=== PATIENT | male | born 1965 | race Caucasian/White ===

== ENCOUNTER → 2018-12-29 10:29 | Outpatient (CLI) | payer BC, SELFPAY ==
[2018-12-29 11:46] LABS: Hemoglobin A1C 5.7 % (0.0-7.0)
[2018-12-29 12:35] LABS: Alanine Aminotransferase 29 U/L (12-78); Albumin Level 3.7 gm/dL (3.4-5.0); Albumin/Globulin Ratio 1.1 (1.1-1.8); Alkaline Phosphatase 95 U/L (46-116); Anion Gap 13.3 mEq/L (5-15); Aspartate Amino Transferase 17 U/L (15-37); Bilirubin,Total 0.5 mg/dL (0.2-1.0); Blood Urea Nitrogen 15 mg/dL (7-18); Calcium 8.6 mg/dL (8.5-10.1); Carbon Dioxide 25 mmol/L (21.0-32.0); Chloride 107 mmol/L (98-107); Chol/HDL Ratio 3.4 (1-3.5); Cholesterol 172 mg/dL (140-200); Creatinine,Serum 1.16 mg/dL (0.70-1.30); Estimated Glomerular Filt Rate 66 ml/min (>60); GFR (African American) 79 ML/MIN (>60); Globulin 3.3 gm/dl (1.3-3.2); Glucose 99 mg/dL (74-106); HDL Cholesterol 50 mg/dL (27-67); LDL Cholesterol 102 mg/dL (0-130); Potassium 4.3 mmoL/L (3.5-5.1); Prostate Specific Ag, Diagnost 0.28 ng/mL (0.0-4.0); Sodium 141 mmol/L (136-145); Thyroid Stimulating Hormone 1.41 uIU/ml (0.358-3.740); Triglycerides 101 mg/dL (30-200); VLDL Cholesterol 20 mg/dL (0-40)
== END ==
PROVIDERS: PCP Family Medicine; Visit Provider Family Medicine
DX: Z00.00 Encounter for general adult medical examination without abnormal findings (principal); Z13.220 Encounter for screening for lipoid disorders; Z12.5 Encounter for screening for malignant neoplasm of prostate; R73.01 Impaired fasting glucose
CPT/HCPCS: 36415; 80053; 80061; 83036; 84153; 84443

== ENCOUNTER → 2019-11-09 11:51 | Outpatient (CLI) | payer BC, SELFPAY ==
--- NOTE | 2019-11-09 | XR_ITS ---
PROCEDURE: XR CHEST 2V CLINICAL HISTORY: Shortness of air COMPARISON: No exams were available for comparison FINDINGS: The cardiomediastinal silhouette and pulmonary vascularity are within normal limits. There is eventration of the hemidiaphragm on the left anteriorly. The lungs are clear. There is a lucency of the proximal humerus on the right and could be due to a bone cyst or surgical defect. IMPRESSION: No acute findings. Dictated by: Kenan Vera MD 11/09/2019 12:16 Electronically signed by Kenan Vera MD in [place] 11/09/2019 12:16
[2019-11-09 13:03] LABS: Basophils # 0.1 K/mm3 (0-0.2); Basophils % 0.9 % (0.1-2.0); Eosinophils # 0.3 K/mm3 (0.0-0.4); Eosinophils % 5.1 % (0.1-12.0); Hematocrit 46.1 % (42.0-52.0); Hemoglobin 15.3 g/dL (14.1-18.0); Lymphocytes # 1.9 K/mm3 (0.7-4.5); Lymphocytes % 31.4 % (10-50); Mean Corpuscular HGB Conc 33.1 g/dL (31.8-35.4); Mean Corpuscular Hemoglobin 29.3 pg (27.0-31.2); Mean Corpuscular Volume 88.4 fl (80-94); Mean Platelet Volume 7.3 fl (7.4-10.4); Monocytes # 0.4 K/mm3 (0.1-1.0); Monocytes % 6.8 % (1.7-9.3); Neutrophils # 3.4 K/mm3 (1.8-7.8); Neutrophils % 55.7 % (37.0-80.0); Platelet Count 326 K/mm3 (142-424); Red Blood Count 5.21 M/mm3 (4.60-6.20); Red Cell Distribution Width 13.4 % (11.5-17.5)
[2019-11-09 14:14] LABS: Alanine Aminotransferase 29 U/L (12-78); Albumin Level 4.8 g/dl (3.5-5.0); Albumin/Globulin Ratio 1.5 (1.1-1.8); Alkaline Phosphatase 101 U/L (38-126); Anion Gap 11.6 mEq/L (5-15); Aspartate Amino Transferase 30 U/L (17-59); Bilirubin,Total 0.5 mg/dl (0.2-1.3); Blood Urea Nitrogen 17 mg/dl (9-20); Calcium 9.8 mg/dl (8.4-10.2); Carbon Dioxide 28 mmol/L (22.0-30.0); Chloride 103 mmol/L (98-107); Estimated Glomerular Filt Rate 69 ml/min (>60); GFR (African American) 84 ML/MIN (>60); Globulin 3.1 g/dL (1.3-3.2); Glucose 95 mg/dl (74-100); Potassium 4.6 mmoL/L (3.5-5.1); Sodium 138 mmol/L (136-145); Total Protein,Serum 7.9 g/dl (6.3-8.2)
== END ==
PROVIDERS: PCP Family Medicine; Visit Provider Family Medicine
DX: R06.02 Shortness of breath (principal); R06.2 Wheezing
CPT/HCPCS: 36415; 71046; 80053; 83880; 85025

== ENCOUNTER → 2019-11-15 09:47 | Outpatient (CLI) | payer BC, SELFPAY ==
[2019-11-15 10:53] VITALS: PULSE 63; PULSE 66
== END ==
PROVIDERS: PCP Family Medicine; Visit Provider Family Medicine
DX: R06.02 Shortness of breath (principal); R06.2 Wheezing
CPT/HCPCS: 94060; 94640

== ENCOUNTER → 2021-03-29 13:20 | Outpatient (CLI) | payer OTHER, SELFPAY ==
--- NOTE | 2021-03-29 13:30 | XR_ITS ---
PROCEDURE: XR KNEE LT 3V CLINICAL INDICATION: PAIN IN LT KNEE COMPARISON: No exams were available for comparison FINDINGS: No fracture or dislocation. No lytic or blastic change. There is normal mineralization. There are mild osteoarthritic changes of the medial compartment and patellofemoral joint. Other findings:None. IMPRESSION: Mild osteoarthritis Dictated by: Kenan Vera MD 03/29/2021 14:02 Kenan Vera MD in [place] 03/29/2021 14:02
[2021-03-29 15:45] LABS: Anion Gap 6.5 mEq/L (5-15); Blood Urea Nitrogen 11 mg/dl (9-20); Calcium 8.9 mg/dl (8.4-10.2); Carbon Dioxide 30 mmol/L (22.0-30.0); Chloride 109 mmol/L (98-107); Chol/HDL Ratio 3.6 (1-3.5); Cholesterol 192 mg/dl (140-200); Estimated Glomerular Filt Rate 87 ml/min (>60); GFR (African American) 106 ML/MIN (>60); Glucose 100 mg/dl (74-100); HDL Cholesterol 54 mg/dl (40-60); Potassium 4.5 mmoL/L (3.5-5.1); Sodium 141 mmol/L (136-145); Triglycerides 157 mg/dl (30-150); VLDL Cholesterol 31 mg/dL (0-40)
[2021-03-29 16:16] LABS: Prostate Specific Ag Screen 0.3 ng/ml (0.0-4.0)
== END ==
PROVIDERS: PCP Family Medicine; Visit Provider Family Medicine
DX: M25.562 Pain in left knee (principal); Z13.220 Encounter for screening for lipoid disorders; Z12.5 Encounter for screening for malignant neoplasm of prostate; Z13.1 Encounter for screening for diabetes mellitus
CPT/HCPCS: 36415; 73562; 80048; 80061; G0103

== ENCOUNTER → 2021-04-19 09:19 | Outpatient (CLI) | payer OTHER, SELFPAY ==
--- NOTE | 2021-04-19 09:26 | XR_ITS ---
PROCEDURE: XR KNEE LT 4V CLINICAL INDICATION: LT knee pain COMPARISON: CR XR KNEE LT 3V from 03/29/2021 FINDINGS: No fracture or dislocation. No lytic or blastic change. There is normal mineralization. There is slight decrease in the joint space medially on this weight-bearing views. Minimal spurring along the posterior patella. Possible small suprapatellar effusion. Other findings:None. IMPRESSION: Mild osteoarthritic changes overall not significantly changed with suspected small knee joint effusion Dictated by: Kenan Vera MD 04/19/2021 11:15 Kenan Vera MD in [place] 04/19/2021 11:15
== END ==
PROVIDERS: PCP Family Medicine; Visit Provider Orthopaedic Surgery
DX: M25.562 Pain in left knee (principal)
CPT/HCPCS: 73564

== ENCOUNTER 2021-04-19 10:40 | Outpatient (RCR) | payer BC, SELFPAY | END 2021-04-19 11:19 | disposition home or self-care (01) | LOC: PT 10:40 | PROVIDERS: Visit Provider Orthopaedic Surgery | DX: M25.562 Pain in left knee (principal); M17.12 Unilateral primary osteoarthritis, left knee | CPT/HCPCS: 97760 ==

== ENCOUNTER → 2022-07-25 09:46 | Outpatient (CLI) | payer BC, SELFPAY ==
[2022-07-25 10:00] LABS: Microscopic, Urine URINE MICROSCOPIC (MICROSCOPIC)
[2022-07-25 10:36] LABS: Basophils # 0.1 K/mm3 (0-0.2); Basophils % 1.1 % (0.1-2.0); Eosinophils # 0.3 K/mm3 (0.0-0.4); Eosinophils % 5.2 % (0.1-12.0); Hemoglobin 13.9 g/dL (14.1-18.0); Lymphocytes # 2.4 K/mm3 (0.7-4.5); Lymphocytes % 37.5 % (10-50); Mean Corpuscular HGB Conc 33.1 g/dL (31.8-35.4); Mean Corpuscular Hemoglobin 30.2 pg (27.0-31.2); Mean Corpuscular Volume 91.1 fl (80-94); Mean Platelet Volume 7.7 fl (7.4-10.4); Monocytes # 0.4 K/mm3 (0.1-1.0); Monocytes % 6.8 % (1.7-9.3); Neutrophils # 3.2 K/mm3 (1.8-7.8); Neutrophils % 49.5 % (37.0-80.0); Platelet Count 314 K/mm3 (142-424); Red Blood Count 4.61 M/mm3 (4.60-6.20); White Blood Count 6.5 K/mm3 (4.8-10.8)
[2022-07-25 10:49] LABS: Blood Urea Nitrogen 15 mg/dl (9-20); Calcium 8.5 mg/dl (8.4-10.2); Carbon Dioxide 24 mmol/L (22.0-30.0); Chloride 109 mmol/L (98-107); Estimated Glomerular Filt Rate 57 ml/min (>60); GFR (African American) 69 ML/MIN (>60); Glucose 100 mg/dl (74-100); Sodium 140 mmol/L (136-145)
[2022-07-25 11:16] LABS: Appearance,Urine CLEAR (Clear); Bilirubin,Urine Negative (Negative); Blood, Urine Negative (Negative); Color,Urine YELLOW (Yellow); Glucose,Urine (UA) Negative (Negative); Ketones,Urine Negative (Negative); Leukocyte Esterase,Urine Negative (Negative); Nitrate,Urine Negative (Negative); PH,Urine 5.5 (5.0-8.5); Protein,Urine Negative (Negative); Specific Gravity, Urine 1.025 (1.005-1.030); Urobilinogen,Urine 0.2 EU/dl (0.2)
[2022-07-25 12:03] LABS: Squamous Epithelial Cell,Urine Occasional #/hpf (0-5); WBC,Urine Occasional #/hpf (0-3)
== END ==
PROVIDERS: PCP Family Medicine; Visit Provider Surgery
DX: K40.90 Unilateral inguinal hernia, without obstruction or gangrene, not specified as recurrent (principal)
CPT/HCPCS: 36415; 80048; 81001; 85025

== ENCOUNTER 2022-08-07 06:03 | Day surgery (SDC) | payer BC, SELFPAY ==
[2022-08-05 11:58] VITALS: BMI 38.5
[2022-08-07] VITALS (13 sets, daily range): BP systolic 118–146; BP diastolic 66–96; PULSE 53–74; RESP 16–20; TEMP 36.1–43; O2SAT 93–99
--- NOTE | 2022-08-07 06:26 | ECG_ITS ---
APPROVED REPORT Exam: Resting ECG HR:63 bpm ECG Measurements Heart Rate 63 AXES DE 151 P 39 QRSd 107 QRS 56 QT 446 T 61 QTc 454 Conclusion SINUS RHYTHM LOW QRS VOLTAGE IN PRECORDIAL LEADS [QRS DEFLECTION < 1.0 mV IN CHEST LEADS] BORDERLINE ECG UNCONFIRMED REPORT Electronically signed by : Kai Tomas MD 08/07/2022 17:30:03
--- NOTE | 2022-08-07 08:06 | P.PN_ITS ---
[facility] Disclaimer: The information contained in this section may have been updated after the patient was seen, as this information can be updated by other users. Medical History (Updated 08/07/22 @ 06:19 by Jaye Farias RN) GERD (gastroesophageal reflux disease) Sleep apnea Surgical History H/O shoulder surgery History of colonoscopy Family History (Updated 08/07/22 @ 06:21 by Jaye Farias RN) Other Brain cancer Family history of myocardial infarction Social History (Updated 08/07/22 @ 06:21 by Jaye Farias RN) Smoking Status: Never smoker alcohol intake: current substance use type: denies use current occupational status: employed Travel in the last 8 weeks: Inside the [place] household members: spouse and family housing: house marital status: education level: college service: No caffeine: Yes special robbin needs: No agree to transfusion: No do you feel safe at home: Yes victim of physical abuse: No victim of emotional abuse: No victim of sexual abuse: No would you like helpful sources: No [facility] Anesthesia Checklist Patient Identification Patient Identification: Arm Band and Family Structural Data Admitted From: Home Planned Operative Procedure/s: Right Inguinal Hernia Repair Open Consent for Planned Operative Procedure(s) Verified: Yes Verified Documents: Surgical Consent and History and Physical NPO Status Verified Time NPO: 00:00 Additional verifications Patient : No Anesthesia Reactions: No Hx Blood Transfusions: No Blood Transfusion Reaction: No Cephalosporin Allergy: No Previous Colonoscopy: Yes Airway Assessment C-Spine Mobility Assessed: Yes TMJ Mobility Assessed: Yes Dentition: Good Dentition Neurological Assessment Level of Consciousness: Awake, Alert, Appropriate and Follows Commands Hx Seizures: No Numbness or tingling in extremities: No Anesthesia Plan Anesthesia Risk discussed: Yes ASA Class: II Anesthesia Type: General
--- NOTE | 2022-08-07 08:52 | P.OP_ITS ---
Date of procedure: 08/07/22 Pre-op Diagnosis:: Right inguinal hernia Post-op Diagnosis:: Same Procedure performed:: Open right inguinal hernia repair Surgeon:: Ton Batista MD Anesthesia: GETMary Beth Estimated blood loss (mL): 15 Operative findings:: Large complex direct defect Operative note:: After informed consent was obtained the patient was taken to the operating room and placed in the supine position. General anesthesia was induced and his lower abdomen and groin/scrotum were prepped and draped in a sterile fashion. After infiltration local anesthetic an oblique incision was made in the right groin. Dissection was taken through Zahra's fascia to the level of the external aponeurosis. The external aponeurosis was sharply opened to the level of the external ring. The contents of the canal were carefully elevated. A large comp jana direct defect was encountered. The cord structures were carefully elevated as a combination of sharp dissection, blunt dissection, and electrocautery was utilized to dissect the surrounding tissue/cremasteric fibers.. An extra-large PerFix plug was secured in position through the direct defect with interrupted 2-0 Ethibond. The PerFix overlay was then secured to the shelving edge inferiorly and fascial margin superiorly with interrupted Ethibond. The external aponeurosis was then reapproximated with running Vicryl suture. Zahra's fascia was closed in the same manner. Skin was then reapproximated with running 3-0 Monocryl strata fix. Dressings were applied and the patient was transferred to recovery in stable condition. Condition: stable Disposition: PACU Specimens:: none Complications:: No immediate
--- NOTE | 2022-08-07 11:01 | P.PN_ITS ---
[facility] Disclaimer: The information contained in this section may have been updated after the patient was seen, as this information can be updated by other users. Medical History (Updated 08/07/22 @ 06:19 by Jaye Farias RN) GERD (gastroesophageal reflux disease) Sleep apnea Surgical History H/O shoulder surgery History of colonoscopy Family History (Updated 08/07/22 @ 06:21 by Jaye Farias RN) Other Brain cancer Family history of myocardial infarction Social History (Updated 08/07/22 @ 06:21 by Jaye Farias RN) Smoking Status: Never smoker alcohol intake: current substance use type: denies use current occupational status: employed Travel in the last 8 weeks: Inside the [place] household members: spouse and family housing: house marital status: education level: college service: No caffeine: Yes special robbin needs: No agree to transfusion: No do you feel safe at home: Yes victim of physical abuse: No victim of emotional abuse: No victim of sexual abuse: No would you like helpful sources: No [facility] Anesthesia Checklist Patient Identification Patient Identification: Arm Band and Family Structural Data Admitted From: Home Planned Operative Procedure/s: Open Right Inguinba Hernia Repair Consent for Planned Operative Procedure(s) Verified: Yes NPO Status Verified Time NPO: 00:00 Additional verifications Patient : No Anesthesia Reactions: No Hx Blood Transfusions: No Blood Transfusion Reaction: No Cephalosporin Allergy: No Previous Colonoscopy: No Airway Assessment C-Spine Mobility Assessed: Yes TMJ Mobility Assessed: Yes Dentition: Good Dentition Neurological Assessment Level of Consciousness: Awake, Alert, Appropriate and Follows Commands Hx Seizures: No Numbness or tingling in extremities: No Anesthesia Plan Anesthesia Risk discussed: Yes ASA Class: II Anesthesia Type: General
--- NOTE | 2022-08-07 11:03 | P.PNANES_ITS ---
[facility] Anesthesia Record Part I Anesthesia Record I Intake, IV Amount: 1,600 Estimated blood loss (mL): 2 Urine output (mL): 100 Blood Products used (#): none Blood Pressure: 140/96 SaO2: 96 Pulse Rate: 74 Respiratory Rate: 18 Temperature: 97.9 F Patient is:: Drowsy and Stable Stable to PACU at:: 09:00
[2022-08-07 15:02] LABS: Microscopic,Cath URINE MICROSCOPIC (MICROSCOPIC)
[2022-08-07 15:09] LABS: Appearance,Urine/Cath CLEAR (Clear); Bilirubin,Cath Negative (Negative); Blood, Urine/Cath Negative (Negative); Color,Urine/Cath YELLOW (Yellow); Glucose,Urine/Cath (UA) Negative (Negative); Ketones,Urine/Cath Negative (Negative); Leukocyte Esterase,Cath Negative (Negative); Nitrate,Cath Negative (Negative); Protein,Urine/Cath Negative (Negative); Specific Gravity, Urine/Cath 1.025 (1.005-1.030); Urobilinogen,Cath 0.2 EU/dl (0.2)
[2022-08-07 15:32] LABS: Squamous Epithelial Ur./Cath Occasional #/hpf (0-5); WBC,Urine/Cath Occasional #/hpf (0-3)
--- NOTE | 2022-08-11 07:36 | EXP.ANES.II ---
[facility] Anesthesia Record Part II Anesthesia Record Part II Discharge Time: 09:30 Destination: Surgical Day Care (OP Surgery) PACU nurse assessment reviewed?: Yes Patient Condition:: Good Anesthesia Complications:: None Swallowing reflex intact?: Yes Cyanosis?: No Blood Pressure: 142/82 Pulse Rate: 57 Temperature: 97.6 F Mental Status: Alert & Oriented Pain level:: 0 Nausea and/or vomitting:: None Intake, IV Amount: 0
[2022-08-11 07:38] VITALS: BP 142/82; PULSE 57; TEMP 36.4
== END 2022-08-07 10:50 | disposition home or self-care (01) ==
PROVIDERS: PCP Family Medicine; Visit Provider Surgery
PROC: (CPT 49505; principal; 2022-08-07 07:30)
DX: K40.90 Unilateral inguinal hernia, without obstruction or gangrene, not specified as recurrent (principal)
CPT/HCPCS: 49505; 81001; 93005; 96374; J2405

== ENCOUNTER → 2022-08-26 14:00 | Outpatient (CLI) | payer BC, SELFPAY ==
--- NOTE | 2022-08-26 14:03 | XR_ITS ---
FINAL REPORT CLINICAL HISTORY: knee pain FINDINGS: AP, lateral and oblique views of the right knee were obtained. There is no prior exam for comparison. There is no acute osseous abnormality of the right knee. There is mild degenerative joint disease, most pronounced in the medial compartment. The soft tissues are normal. There is no joint effusion. IMPRESSION: Mild degenerative joint disease. Reviewed, Interpreted and Dictated by Tabatha Beavers MD Transcribed by Emmie Rodrigez Authenticated and [facility]
--- NOTE | 2022-08-26 14:03 | XR_ITS ---
FINAL REPORT CLINICAL HISTORY: hip pain FINDINGS: AP and frog leg views of the left hip were obtained. There is no prior exam for comparison. There is no acute fracture or dislocation. Joint space is preserved. Soft tissues are within normal limits. IMPRESSION: No acute osseous abnormality of the left hip. If pain persists, MR is recommended. Reviewed, Interpreted and Dictated by Tabatha Beavers MD Transcribed by Emmie Rodrigez Authenticated and [facility]
--- NOTE | 2022-08-26 14:03 | XR_ITS ---
FINAL REPORT CLINICAL HISTORY: hip pain FINDINGS: AP and frog leg views of the right hip were obtained. There is no prior exam for comparison. There is no acute fracture or dislocation. Joint space is preserved. Soft tissues are within normal limits. IMPRESSION: No acute osseous abnormality of the right hip. If pain persists, MR is recommended. Reviewed, Interpreted and Dictated by Tabatha Beavers MD Transcribed by Emmie Rodrigez Authenticated and [facility]
--- NOTE | 2022-08-26 14:03 | XR_ITS ---
FINAL REPORT CLINICAL HISTORY: knee pain FINDINGS: AP, lateral and oblique views of the left knee were obtained. There is no prior exam for comparison. There is no acute osseous abnormality of the left knee. There is mild degenerative joint disease, most pronounced in the medial compartment. The soft tissues are normal. There is no joint effusion. IMPRESSION: Mild degenerative joint disease. Reviewed, Interpreted and Dictated by Tabatha Beavers MD Transcribed by Emmie Rodrigez Authenticated and [facility]
== END ==
PROVIDERS: PCP Family Medicine; Visit Provider Orthopaedic Surgery
DX: M25.562 Pain in left knee (principal); M25.561 Pain in right knee; M25.552 Pain in left hip; M25.551 Pain in right hip
CPT/HCPCS: 73502; 73562

== ENCOUNTER 2022-11-25 14:30 | Outpatient (RCR) | payer BC, SELFPAY | END 2022-11-25 14:35 | disposition home or self-care (01) | LOC: PT 14:30 | PROVIDERS: PCP Family Medicine; Visit Provider Physical Medicine & Rehabilitation | DX: M25.551 Pain in right hip (principal); M25.552 Pain in left hip; M16.0 Bilateral primary osteoarthritis of hip; M17.0 Bilateral primary osteoarthritis of knee | CPT/HCPCS: 97010; 97014; 97110; 97163; 97164; 97530; G0283 ==

== ENCOUNTER 2023-02-18 14:00 | Outpatient (RCR) | payer BC, SELFPAY | END 2023-02-18 14:05 | disposition home or self-care (01) | LOC: PT 14:00 | PROVIDERS: PCP Family Medicine; Visit Provider Physical Medicine & Rehabilitation | DX: M17.0 Bilateral primary osteoarthritis of knee (principal) | CPT/HCPCS: 97113; 97163; 97164; 97530 ==

== ENCOUNTER 2023-08-19 13:00 | Outpatient (RCR) | payer BC, SELFPAY | END 2023-08-19 14:00 | disposition home or self-care (01) | LOC: PT 13:00 | PROVIDERS: PCP Family Medicine; Visit Provider Orthopaedic Surgery | DX: M17.12 Unilateral primary osteoarthritis, left knee (principal); Z96.652 Presence of left artificial knee joint | CPT/HCPCS: 20561; 97010; 97014; 97016; 97110; 97140; 97163; 97164; 97530; G0283 ==

== ENCOUNTER 2024-02-19 10:00 | Outpatient (RCR) | payer BC, SELFPAY | END 2024-02-19 10:05 | disposition home or self-care (01) | LOC: PT 10:00 | PROVIDERS: Visit Provider Orthopaedic Surgery | DX: M17.11 Unilateral primary osteoarthritis, right knee (principal); M25.561 Pain in right knee; Z96.651 Presence of right artificial knee joint | CPT/HCPCS: 97014; 97016; 97110; 97140; 97163; 97164; 97530; G0283 ==

== ENCOUNTER 2024-06-09 15:20 | Outpatient (CLI) | payer BC, SELFPAY ==
--- NOTE | 2024-06-09 15:20 | CT_ITS ---
FINAL REPORT TECHNIQUE: Thin section axial CT images of the facial bones and sinuses were obtained without contrast. Coronal reformatted images were also obtained.This study was performed with techniques to keep radiation doses as low as reasonably achievable, (ALARA). Individualized dose reduction techniques using automated exposure control or adjustment of mA and/or kV according to the patient''''s size were employed. CLINICAL HISTORY: tooth pain and sinus congestion FINDINGS: There is moderate lobular mucosal thickening throughout the sinuses. Soft tissue obscures the maxillary sinus ostia and infundibulum. No fluid levels are identified. The ostiomeatal units have an unremarkable appearance. The nasal septum is in the midline. No fracture or acute bony abnormality is identified. IMPRESSION: Moderate lobular mucosal thickening throughout the sinuses. Soft tissue obscuring the maxillary sinus ostia and infundibulum. No air-fluid levels identified. Reviewed, Interpreted and Dictated by Eyad Blake III, MD Transcribed by Lu Ang Authenticated and . [facility]
== END 2024-06-09 23:59 | disposition home or self-care (01) ==
LOC: RAD 15:20
PROVIDERS: PCP Family Medicine; Visit Provider Nurse Practitioner
DX: K08.89 Other specified disorders of teeth and supporting structures (principal); R09.81 Nasal congestion
CPT/HCPCS: 70486

== ENCOUNTER 2025-02-08 12:59 | Outpatient (CLI) | payer BC, SELFPAY ==
[2025-02-08 08:18] VITALS: BMI 39.3
--- OUTSIDE RECORDS SUMMARY | 2025-02-08 13:04 | XMS_ITS | Encounter Summary ---
Author Organization Healthcare Address [address] [place] [address] Care Team Providers Care Software Test Manager Name Role Phone Allen Khalil MD Primary Care Provider [phone] Fay Singleton DMD Unavailable [phone] Matt Frank Unavailable Unavailable Encounter Details Date Type Department Care Team (Late st Contact Info) Description 11/10/2024 Telephone [facility] [address] [place] [address] None, None [address] [place] [address] Social History Tobacco Use Types Packs/Day Years Used Date Smoking Tobacco: Former Cigarettes 0.5 15 0 06/29/1986 - 06/29/2001 Passive Smoke Exposure: Never Smokeless Tobacco: Never Alcohol Use Standard Drinks/Week Comments Yes 2 (1 standard drink = 0.6 oz pur e alcohol) AUDIT-C Answer Date Recorded Q1: How often do you have a drink containing alc ohol? 2-4 times a month 04/21/2023 Q2: How many drinks containi ng alcohol do you have on a typical day when you are drinking? 3 or 4 04/21/2023 Q3: How often do you have si x or more drinks on one occasion? Never 04/21/2023 Overall Financial Resource Strain (CARDIA) Answe r Date Recorded How hard is it for you to pa y for the very basics like food, housing, medical care, and heating? Not very hard 04/21/2023 PHQ-2 Answer Date Recorded Patient Health Questionnaire-2 Score 0 09/21/2024 PRAPARE - Transportation Answer Date Re corded In the past 12 months, has l ack of transportation kept you from medical appointments or from getting medications? No 03/30 In the past 12 months, has l ack of transportation kept you from meetings, work, or from getting things needed for daily living? No 04/21/2023 PHQ-9 Answer Date Recorded Patient Health Questionnaire-9 Score 0 09/21/2024 CAGE ASSESSMENT Answer Date Recorded Cage unable to access Not on file 05/27/2023 Cage max number of drinks Not on file 2022 Cage Beverages a week Not on file 05/27/2023 Have you ever felt you should CUT down on your d rinking? 0 05/27/2023 Have you been ANNOYED by people criticizing your drinking? 0 05/27/2023 Have you felt GUILTY about your drinking? 0 05/27/2023 Have you had a drink first t macie in the morning (EYE-LOSS PREVENTION/SAFETY DISTRICT MANAGER) to steady your nerves or to get rid of a hangover? 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 He has an appt in [facility] tomorrow, left multiple messages for Endo to this affect. Teams messaged [facility] to return pt's call. documented in this encounter Plan of Treatment Upcoming Encounters Date Type Department Care Team (Late st Contact Info) Description 02/09/2025 1:30 PM EDT Office Visit [facility] [address] [facility] [address] [place] [phone] 05/11/2025 2:00 PM EST Office Visit [facility] [address] [place] [phone] Matt Frank 05/30/2025 8:30 AM EST Office Visit Medical [facility] [address], [address] [place] [address] Rafael Hughes MD [address] [place] [address] 09/27/2025 1:00 PM EDT Office Visit [facility] [address] [facility], [address] [place] [address] Anne Lau MD [address] [place] [address] documented as of this encounter Visit Diagnoses Not on filedocumented in this encounter Additional Health Concerns Assessment Noted Time PHQ-9 Depression Total Score: 0 09/22/19 25 12:54 PM EDT A fall risk assessment has been complete d for the patient 09/21/2024 12:54 PM EDT A Body Mass Index follow-up plan has been documented for the patient 11/04/2024 12:35 PM EDT documented as of this encounter Care Teams Software Test Manager Relationship Specialty Start Date End Date Allen Khalil MD [address] [facility] [address] [place] [address] PCP - General 11/09/20 Fay Singleton DMD [address] [facility] [address] [place] [address] Dentist 05/04/24 Matt Frank Dental Student Dental Winch Derrick Operator 05/04/24 documented as of this encounter
--- OUTSIDE RECORDS SUMMARY | 2025-02-08 13:04 | XMS_ITS | Encounter Summary ---
Author Organization [facility] Address [address] [place] [address] Care Team Providers Care Stem Sizer Name Role Phone Allen Khalil MD Primary Care Provider + [phone] Sarah Ball DMD Unavailable [phone] Alphonso Boles I Unavailable Unavailable Kathleen Davisa A Unavailable Unava ilable Naomi Carter Unavailable Unavailable Fay Singleton DMD Unavailable [phone] Matt Frank Unavailable Unavailable Encounter Details Date Type Department Care Team (Late st Contact Info) Description 08/23/2019 Abstract [facility] [address] [place] [address] Dental, Provider, DDS [address] [place], [place] [id number] Social History Tobacco Use Types Packs/Day Years Used Date Smoking Tobacco: Never Assessed Sex and Gender Information Value Date Recorded Sex Assigned at Male 02/26/2024 5:13 PM EDT Legal Sex Male 8:53 PM EDT Gender Identity Male 02/26/2024 5:13 PM EDT Sexual Orientation Not on file documented as of this encounter Plan of Treatment Upcoming Encounters Date Type Department Care Team (Late Contact Info) Description 02/09/2025 1:30 PM EDT Office Visit [facility] [address] [address] 05/11/2025 2:00 PM EST Office Visit [facility] [address] [place] [address] Matt Frank 05/30/2025 8:30 AM EST Office Visit [facility] [address] [facility], [address] [place] [address] Rafael Hughes MD [address] [place] [address] 09/27/2025 1:00 PM EDT Office Visit [facility] [address] [facility], [address] [place] [address] Anne Lau MD [address] [facility] [address] [place] [address] documented as of this encounter Visit Diagnoses Not on filedocumented in this encounter Care Teams Stem Sizer Relationship Specialty Start Date End Date Allen Khalil MD [address] [facility] [address] [place] [address] PCP - General 11/09/20 Sarah Ball DMD [address] [phone] Dentist Dental Mortgage Processor 12/07/20 Alphonso Boles I [facility] Dental Student Dental Mortgage Processor 12/07/20 12/31/21 Adriana Davis [facility] Dental Student Dental Mortgage Processor 10/18/21 11/06/23 Naomi Carter Dental Student Dental Mortgage Processor 10/15/23 05/03/24 Fay Singleton DMD [address] [phone] Dentist 05/04/24 Matt Frank Dental Student Dental Mortgage Processor 05/04/24 documented as of this encounter
--- OUTSIDE RECORDS SUMMARY | 2025-02-08 13:04 | XMS_ITS | Encounter Summary ---
Author Organization [facility] Address [address] [place] [address] Care Team Providers Care Power System Dispatcher Name Role Phone Allen Khalil MD Primary Care Provider + [phone] Sarah Ball DMD Unavailable [phone] Alphonso Boles I Unavailable Unavailable Kathleen Davisa A Unavailable Unava ilable Naomi Carter Unavailable Unavailable Fya Singleton DMD Unavailable [phone] Matt Frank Unavailable Unavailable Encounter Details Date Type Department Care Team (Late st Contact Info) Description 08/23/2019 [facility] [address] [place] [address] Dental, Provider, DDS [address] [place], [place] [id number] Social History Tobacco Use Types Packs/Day Years [...] 02/09/2025 1:30 PM EDT Office Visit [facility] [address] [id number] 05/11/2025 2:00 PM EST Office Visit [facility] [address] [place] [address] Matt Frank 05/30/2025 8:30 AM EST Office Visit Medical Office [facility] [address] [facility], [address] [place] [address] Rafael Hughes MD [address] [place] [address] 09/27/2025 1:00 PM EDT Office Visit [facility] [address] [facility], [address] [place] [address] Anne Lau MD [address] [facility] [address] [place] [address] documented as of this encounter Visit Diagnoses Not on filedocumented in this encounter Care Teams Power System Dispatcher Relationship Specialty Start Date End Date Allen Khalil MD [address] [facility] [address] [place] [address] PCP - General 11/09/20 Sarah Ball DMD [address] [phone] Dentist Dental Hearing Impaired Itinerant Teacher 12/07/20 Alphonso Boles I [facility] Dental Student Dental Hearing Impaired Itinerant Teacher 12/07/20 12/31/21 Adriana Davis [facility] Dental Student Dental Hearing Impaired Itinerant Teacher 10/18/21 11/06/23 Naomi Carter Dental Student Dental Hearing Impaired Itinerant Teacher 10/15/23 05/03/24 Fay Singleton DMD [address] [phone] Dentist 05/04/24 Matt Frank Dental Student Dental Hearing Impaired Itinerant Teacher 05/04/24 documented as of this encounter
--- OUTSIDE RECORDS SUMMARY | 2025-02-08 13:04 | XMS_ITS | Encounter Summary ---
Author Organization [facility] Address [address] 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 Not on file Not on file documented as of this encounter Plan of Treatment Upcoming Encounters Date Type Department Care Team (Late st Contact Info) Description 02/09/2025 1:30 PM EDT Office Visit [facility] [address] [facility] [address] [place] [phone] 05/11/2025 2:00 PM EST Office Visit [facility] [address] [place] [phone] Matt Frank 05/30/2025 8:30 AM EST Office Visit Medical Office [facility] [address] [facility], [address] [place] [address] Rafael Hughes MD [address] [facility] [address] [place] [address] 09/27/2025 1:00 PM EDT Office Visit [facility] [address] [facility] [place] [address] Anne Lau MD [address] [facility] [address] [place] [address] documented as of this encounter Goals Goal Patient Goal Type Associated Problems Recent Progress Patient-Stated? Author Autogenerat ed Goal Care Plan Autogenerated Problem No Morelia Delarosa documented as of this encounter Visit Diagnoses Not on filedocumented in this encounter Additional Health Concerns Active Problems Noted Date Diagnosed Date Autogenerated Problem 11/13/2024 Assessment Noted Time PHQ-9 Depression Total Score: 0 09/22/19 25 12:54 PM EDT A fall risk assessment has been complete d for the patient 11/29/2024 7:42 AM EDT A Body Mass Index follow-up plan has been documented for the patient 11/29/2024 11:16 AM EDT documented as of this encounter Care Teams Nursing Information Systems Coordinator Relationship Specialty Start Date End Date Allen Khalil MD [address] [facility] [address] [place] [address] PCP - General 11/09/20 Fay Singleton DMD [address] [place] [phone] Dentist 05/04/24 Matt Frank Dental Student Dental Railroad Car Cleaning Supervisor 05/04/24 documented as of this encounter
--- OUTSIDE RECORDS SUMMARY | 2025-02-08 13:04 | XMS_ITS | Encounter Summary ---
Author Organization [facility] Address [address] [place] [address] Care Team Providers Care Security Coordinator Name Role Phone Allen Khalil MD Primary Care Provider + [phone] Sarah Ball DMD Unavailable [phone] Alphonso Boles I Unavailable Unavailable Kathleen Davisa A Unavailable Unava ilable Naomi Carter Unavailable Unavailable Fay Singleton DMD Unavailable [phone] Matt Frank Unavailable Unavailable Encounter Details Date Type Department Care Team (Late st Contact Info) Description 08/23/2019 [facility] [address] [place] [address] Dental, Provider, DDS [address] [place], [place] [id number] Social History Tobacco Use Types Packs/Day Years [...] 02/09/2025 1:30 PM EDT Office Visit [facility] [address] [phone] 05/11/2025 2:00 PM EST Office Visit [facility] [address] [place] [address] Matt Frank 05/30/2025 8:30 AM EST Office Visit Medical Office Building [facility] [address] [facility], [address] [place] [address] Rafael Hughse MD [address] [place] [address] 09/27/2025 1:00 PM EDT Office Visit [facility] [address] [facility], [address] [place] [address] Anne Lau MD [address] [facility] [address] [place] [address] documented as of this encounter Visit Diagnoses Not on filedocumented in this encounter Care Teams Security Coordinator Relationship Specialty Start Date End Date Allen Khalil MD [address] [facility] [address] [place] [address] PCP - General 11/09/20 Sarah Ball DMD [address] [phone] Dentist Dental General Car Yard Supervisor 12/07/20 Alphonso Boles I [facility] Dental Student Dental General Car Yard Supervisor 12/07/20 12/31/21 Adriana Davis [facility] Dental Student Dental General Car Yard Supervisor 10/18/21 11/06/23 Naomi Carter Dental Student Dental General Car Yard Supervisor 10/15/23 05/03/24 Fay Singleton DMD [address] [phone] Dentist 05/04/24 Matt Frank Dental Student Dental General Car Yard Supervisor 05/04/24 documented as of this encounter
--- OUTSIDE RECORDS SUMMARY | 2025-02-08 13:04 | XMS_ITS | Clinical Summary ---
Author Organization [facility] Address [address] [place] [address] Care Team Providers Care Public Works Commissioner Name Role Phone Allen Khalil MD Primary Care Provider [phone] Fay Singleton DMD Unavailable [phone] Matt Frank Unavailable Unavailable Allergies No known active allergies Medications albuterol 108 (90 Base) MCG/ACT inhaler Inhale 2 puffs every 6 (six) hours if needed (Cough). 18 g 1 3 Active gabapentin (Neurontin) 100 MG capsule Take 1 capsule (100 mg) by mouth 3 (three) times a day. If this medication makes you drowsy you may take it only at bedtime 30 capsule 4 Active Additional Information Patient not taking.Reported on 11/29/2024 acetaminophen (Tylenol Extra Strength) 500 MG tablet Take 2 tablets (1,000 mg) by mouth every 8 (eight) hours. 100 tablet 4 Active traMADol (Ultram) 50 MG tablet Take 1 tablet (50 mg) by mouth every 4 (four) hours if needed for moderate pain. Take 1 or 2 tablets every 4-6 hours as needed for pain 60 tablet 4 Active Additional Information Patient not taking.Reported on 11/29/2024 oxyCODONE (Roxicodone) 5 MG immediate release tablet Take 1 tablet (5 mg) by mouth every 6 (six) hours if needed for severe pain. 50 tablet 4 Active Additional Information Patient not taking.Reported on 11/29/2024 tadalafil (Adcirca) 20 MG tablet 4 Active fluticasone (Flonase) 50 MCG/ACT nasal spray Administer 1 spray into each nostril daily. Shake gently. Before first use, prime pump. After use, clean tip and replace cap. Active fluticasone-paco meterol (Wixela Inhub) 250-50 MCG/ACT diskus inhaler Inhale 1 puff in the morning and 1 puff before bedtime. Rinse mouth with water after use to reduce aftertaste and incidence of candidiasis. Do not swallow. 60 each 11 5 Active omeprazole (PriLOSEC) [address] capsule Take 1 capsule by mouth in the morning and 1 capsule before bedtime. Do not crush or chew. 60 capsule 11 5 Active chlorhexidine (Peridex) 0.12 % solution Use 15 mL in the mouth or throat 2 times a day. 473 mL 5 Active HYDROcodone-va taminophen ([place]) 5-325 MG tablet Take 1 tablet by mouth every 6 hours as needed for severe pain. 6 tablet 5 Active ibuprofen 600 MG tablet Take 1 tablet by mouth every 6 hours as needed for mild pain. 40 tablet 5 Active Active Problems Problem Noted Date Diagnosed Date Primary localized osteoarthritis of right knee 0 10/27/2023 Primary osteoarthritis of left knee 05/27/2023 Primary osteoarthritis of one knee, left 023 Obesity (BMI 35.0-39.9 without comorbidity) 08/29 Gastroesophageal reflux disease without esophagi tis 02/27/2022 Other conjunctivitis 02/27/2022 Moderate persistent asthma, uncomplicated 2021 Allergic rhinitis due to animal (cat) (dog) hair and dander 05/08/2021 Acute seasonal allergic rhinitis due to pollen 1 07/08/2020 Abscessed tooth 05/08/2021 Wheezing 05/08/2021 GERD (gastroesophageal reflux disease) 1 Allergic rhinitis due to cat hair 05/10/2020 Obstructive sleep apnea, adult 05/10/2020 Allergic rhinitis due to pollen 05/10/2020 Lung nodule 03/13/2020 Sleep apnea 02/07/2020 Arthritis of knee, right 12/29/2018 Encounters Date Type Department Care Team Description 02/02/2025 Travel 11/29/2024 7:50 AM EDT Office Visit Medical Office Building [facility] [address], [address] [place] [address] Rafael Hughes MD Chronic pain of right knee (Primary Dx) 11/29/2024 7:25 AM EDT - 11/29/2024 11:59 PM EDT Hospital Encounter Medical Office Building Radiology [address] [place] [address] Chronic pain of right knee Discharge Disposition: Home or Self Care 11/29/2024 Travel 11/25/2024 1:30 PM EDT [facility] Visit [facility] [address] [phone] Riky Noble A, DDS Failing root canal (Primary Dx) 11/25/2024 Travel 11/22/2024 Travel 11/18/2024 Travel 11/11/2024 8:15 AM EDT [facility] [address] [phone] Riky Noble, DDS Failing root canal; Encounter for dental examination 11/11/2024 Travel 11/10/2024 Telephone [facility] [address] [place] [phone] Sy Joseph 11/10/2024 Telephone [facility] [address] [place] [phone] None, None 11/10/2024 Telephone [facility] [address] [phone] Jacqueline Gómez 11/10/2024 Travel from Last 3 Months Immunizations Immunization Administration Dates Next Due [facility] COVID-19 Vaccine (Purple Cap) 12 + 03/06/2021,02/08/2021 Tdap 10/05/2014 Family History Medical History Relation Name Comments Cancer Brother Nonya Cardiac disorder Father Prostate cancer Father Anesthesia problems Neg Hx Malig Hyperthermia Neg Hx Relation Name Status Comments Brother Nonya Father Social History Tobacco Use Types Packs/Day Years [...] drink first t macie in the morning (EYE-FOOD CHEMIST) to steady your nerves or to get [...] 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 Not on file Not on file Last Filed Vital Signs Vital Sign Reading Time Taken Comments Blood Pressure 107/68 11/29/2024 7:42 AM EDT Pulse 70 11/29/2024 7:42 AM EDT Temperature 36.6 C (97.9 F) 11/25/2024 1:29 PM EDT Respiratory Rate 18 09/21/2024 12:53 PM EDT Oxygen Saturation 96% 11/29/2024 7:42 AM EDT Inhaled Oxygen Concentration - - Weight 130 kg (286 lb 13.1 oz) 11/29/2024 7:42 A M EDT Height 182.9 cm (6') 11/29/2024 7:42 AM EDT Body Mass Index 38.9 11/29/2024 7:42 AM EDT Plan of Treatment Upcoming Encounters Date Type Department Care Team (Late st Contact Info) Description 02/09/2025 1:30 PM EDT Office Visit [facility] [address] [facility] [address] [place] [phone] 05/11/2025 2:00 PM EST Office Visit [facility] [address] [place] [phone] Matt Frank 05/30/2025 8:30 AM EST Office Visit Medical Office Building [facility] [address], [address] [place] [address] Rafael Hughes MD [address] [place] [address] 09/27/2025 1:00 PM EDT Office Visit [facility] [address], [address] [place] [address] Anne Lau MD [address] [place] [address] Health Maintenance Due Date Last Done Comments [facility]-HIV Screening 1964 [facility]-Hepatitis C Screening 1964 [facility]-Infant/Child/Adol SDOH Screenings 1964 [facility]- SDOH Screenings 1982 [facility]-Adult SDOH Screenings 1982 [facility]-Pneumococcal Vaccine: 50+ Years (1 of 2 - PCV) 1983 CT Colonography 2009 Colonoscopy 2009 FIT-DNA 2009 FIT 2009 FOBT 2009 Sigmoidoscopy 2009 [facility]-Colorectal Cancer Screening 2009 [facility]-Zoster Vaccines (1 of 2) 2014 TYT-RBGRH-28 Vaccine (3 - season) 2024 03/06/2021, 02/08/2021 [facility]-RSV Vaccine: 60+ Years or (1 - Risk 60-74 years 1-dose series) 2024 [facility]-DTaP,Tdap,and Td Vaccines (2 - Td or Tdap) 10/05/2024 10/05/2014 [facility]-Influenza Vaccine (#1) 2025 Dental Prophylaxis 05/07/2025 11/03/2024, 1 , 10/22/2023, Additional history exists Dental Oral Exam 05/08/2025 11/04/2024, 01/2025, 04/28/2024, Additional history exists [facility]-Depression Screening 09/21/2025 09/21/2024, 08/28 Dental X-Ray: Bitewings 11/04/2025 11/04/19 25, 07/22/2023, 05/01/2023, Additional history exists Dental X-Ray: Full Mouth 11/06/2027 11/04/2024 [facility]-Obesity Intervention Completed 025, 11/25/2024, 11/11/2024, Additional history exists HPV Vaccines Aged Out No longer eligi ble based on patient's age to complete this topic [facility]-HIB Vaccines Aged Out No longer e ligible based on patient's age to complete this topic [facility]-Hepatitis A Vaccines Aged Out No longer eligible based on patient's age to complete this topic [facility]-IPV Vaccines Aged Out No longer e ligible based on patient's age to complete this topic [facility]-Rotavirus Vaccines Aged Out No lo nger eligible based on patient's age to complete this topic Goals Goal Patient Goal Type Associated Problems Recent Progress Patient-Stated? Author Autogenerat ed Goal Care Plan Autogenerated Problem No Morelia [employer] Implanted Type Area Ferruler Device Identifier Shelf Expiration Date Model / Serial / Lot Allograft-11/11 Implanted:Qty: 1 on 11/11/2024 by [employer] Allograft Left: Mouth 070.226 / [id number] / Cement With Tobramycin - [id number] Implanted:Qty: 2 on 05/27/2023 by Rafael Hughes MD at [facility] Cement Left: Knee [id number] 08/26/2024 [id number] / / [id number] Cement With Tobramycin - [id number] Implanted:Qty: 2 on 12/23/2023 by Rafael Hughes MD at [facility] Cement Right: Knee [employer] [id number] 02/26/2025 [id number] / / [id number] Chg Patella Triathlon Symmetri - [id number] Implanted:Qty: 1 on 05/27/2023 by Rafael Hughes MD at [facility] Knee Left: Knee [employer] [facility] ([facility])-[id number] 04/10/2026 [id number]-G-360- [id number] / / [id number] Chg Femoral Triathlon Cr Cpnt - [id number] Implanted:Qty: 1 on 05/27/2023 by Rafael Hughes MD at [facility] Knee Left: Knee [employer] [facility] ([facility])-[id number] 11/24/2025 [id number] / / [id number] Chg Plate Tri Ts Base Size 4 - [id number] Implanted:Qty: 1 on 05/27/2023 by Rafael Hughes MD at [facility] Knee Left: Knee [facility] ([facility])-[id number] 04/13/2028 [id number] / / [id number] Chg Insert X3 Triathlon Cs Siz - [id number] Implanted:Qty: 1 on 05/27/2023 by Rafael Hughes MD at [facility] Knee Left: Knee [employer] ([facility])-139 [id number] 02/03/2028 [id number] / / [id number] Chg Femoral Legion Cr Oxin Sz7 - [id number] Implanted:Qty: 1 on 12/23/2023 by Rafael Hughes MD at [facility] Knee Right: Knee [employer]-[id number] 12/20/2032 [id number] / / [id number] Chg Tibial Gns Ii Cmt Size 6 R - [id number] Implanted:Qty: 1 on 12/23/2023 by Rafael Hughes MD at [facility] Knee Right: Knee [id number] 05/29/2033 [id number] / / [id number] Chg Lgn Xlpe Dished Isrt Sz 5-6 11mm - [id number] Implanted:Qty: 1 on 12/23/2023 by Rafael Hughes MD at [facility] Knee Right: Knee [employer]-[id number] 04/25/2033 [id number] / / [id number] Chg Patella Gns Ii Resurf 35mm - [id number] Implanted:Qty: 1 on 12/23/2023 by Rafael Hughes MD at [facility] Patella Right: Knee [employer]-[id number] 02/12/2033 [id number] / / [id number] Procedures Procedure Name Priority Date/Time Associated Diagnosis Comments XR KNEE RIGHT 4+ VIEWS Routine 7:36 AM EDT Chronic pain of right knee 14 BONE REPLACEMENT GRAFT FOR RIDGE PRESERVATION - PER SITE Routine 11/11/2024 8:15 AM EDT Failing root canal 14 EXTRACTION, ERUPTED TOOTH REQUIRING REMOVAL OF BONE AND/OR SECTIONING OF TOOTH, AND INCLUDING ELEVATION OF MUCOPERIOSTEAL FLAP IF INDICATED Routine 11/11/2024 8:15 AM EDT Failing root canal PANORAMIC RADIOGRAPHIC IMAGE Routine 11/04/2024 1:00 PM EDT Failing root canal COMPREHENSIVE ORAL EVALUATION - NEW OR ESTABLISHED PATIENT Routine 11/04/2024 1:00 PM EDT Failing root canal PROPHYLAXIS - ADULT Routine 11/03/2024 1 1:00 AM EDT Dental calculus BITEWINGS - 4 RADIOGRAPHIC IMAGES Routine 11/03/2024 11:00 AM EDT Dental calculus from Last 3 Months or Most Recently Relevant to Health Maintenance Results * New Patient: XR Knee (Lateral / [place] / Tunnel / AP Standing with Marker) (11/29/2024 7:36 AM EDT) Anatomical Region Laterality Modality Lower Extremities, Knee Right Digital Radiography Impressions 11/29/2024 8:39 AM EDT No evidence of hardware complication. Persistent small suprapatellar effusion. CRITICAL RESULT: No. COMMUNICATION: Per this written report. Drafted by Ann Marie Calhoun MD on 11/29/2024 8:37 AM Final report signed by Ann Marie Calhoun MD on 11/29/2024 8:39 AM Narrative 11/29/2024 8:39 AM EDT CLINICAL INDICATION: knee pain TECHNIQUE: XR KNEE RIGHT 4+ VIEWS COMPARISON: Radiographs from 05/24/2024 FINDINGS: Right total knee arthroplasty, no evidence of hardware loosening or failure. Small suprapatellar effusion, similar to the prior exam. Mild anterior knee edema. Procedure Note Ann Marie Calhoun MD - 11/29/2024 CLINICAL INDICATION: knee pain TECHNIQUE: XR KNEE RIGHT 4+ VIEWS COMPARISON: Radiographs from 05/24/2024 FINDINGS: Right total knee arthroplasty, no evidence of hardware loosening orfailure. Small suprapatellar effusion, similar to the prior exam. Mildanterior knee edema. IMPRESSION: No evidence of hardware complication. Persistent small suprapatellareffusion. CRITICAL RESULT: No. COMMUNICATION: Per this written report. Drafted by Ann Marie Calhoun MD on 11/29/2024 8:37 AM Final report signed by Ann Marie Calhoun MD on 11/29/2024 8:39 AM Rafael Hughes MD IMG XR PROCEDURES Final R esult from Last 3 Months Additional Health Concerns Active Problems Noted Date Diagnosed Date Autogenerated Problem 11/13/2024 Insurance [facility] [place] [address] [facility] Advance Directives Documents on File Type Date Recorded Patient Airplane Dispatcher Expl anation Advance Directives and Living Will 05/27/2023 * Full Code (Latest Code Status on File) Date Activated Date Inactivated Comments 12/23/2023 6:49 AM 12/24/2023 5:28 PM Question Answer Comments Patient has decision-making capacity? Yes * Full Code Date Activated Date Inactivated Comments 05/27/2023 12:47 PM 05/28/2023 6:31 PM Question Answer Comments Patient has decision-making capacity? Yes Care Teams Public Works Commissioner Relationship Specialty Start Date End Date Allen Khalil MD [address] [place] [address] PCP - General 11/09/20 Fay Singleton DMD [facility] [address] [address] Dentist 05/04/24 Matt Frank Dental Student Dental Sales Agent 05/04/24
--- NOTE | 2025-02-08 13:22 | ECG_ITS ---
APPROVED REPORT Exam: Resting ECG HR:65 bpm ECG Measurements Heart Rate 65 AXES MI 157 P 35 QRSd 94 QRS 42 QT 422 T 44 QTc 433 Conclusion SINUS RHYTHM LOW QRS VOLTAGE IN PRECORDIAL LEADS Late R wave progression - unchanged from 2022 BORDERLINE ECG UNCONFIRMED REPORT Electronically signed by : Kai Tomas MD 02/10/2025 07:42:25
[2025-02-08 13:37] LABS: Hematocrit 41.9 % (42.0-52.0); Hemoglobin 14.2 g/dL (14.1-18.0); Mean Corpuscular HGB Conc 33.9 g/dL (31.8-35.4); Mean Corpuscular Hemoglobin 29.9 pg (27.0-31.2); Mean Corpuscular Volume 88.2 fl (80-94); Platelet Count 281 K/mm3 (142-424); Red Blood Count 4.75 M/mm3 (4.60-6.20); White Blood Count 5.8 K/mm3 (4.8-10.8)
[2025-02-08 13:47] LABS: Chloride 105 mmol/L (98-107); Potassium 3.8 mmoL/L (3.5-5.1); Sodium 138 mmol/L (136-145)
[2025-02-08 13:50] LABS: Anion Gap 11.8 mEq/L (5-15); Blood Urea Nitrogen 23 mg/dl (9-20); Calcium 8.9 mg/dl (8.4-10.2); Carbon Dioxide 25 mmol/L (22.0-30.0); Creatinine Clearance Estimated 133 mL/min (50-200); Creatinine,Serum 1.10 mg/dl (0.66-1.25); Estimated Glomerular Filt Rate 68 ml/min (>60); GFR (African American) 83 ML/MIN (>60); Glucose 142 mg/dl (74-100)
[2025-02-08 15:59] LABS: Total Cells Counted 100
[2025-02-08 16:00] LABS: RBC Morphology Normal
== END 2025-02-08 23:59 | disposition home or self-care (01) ==
LOC: PREOP 13:00
PROVIDERS: PCP Family Medicine; Visit Provider Student in an Organized Health Care Education/Training Program
DX: Z01.810 Encounter for preprocedural cardiovascular examination (principal); Z01.812 Encounter for preprocedural laboratory examination; R94.31 Abnormal electrocardiogram [ECG] [EKG]
CPT/HCPCS: 80048; 85007; 85014; 85018; 85048; 85049; 93005

== ENCOUNTER 2025-02-15 06:09 | Day surgery (SDC) | payer BC, SELFPAY ==
[2025-02-10 13:58] VITALS: BMI 38.8
[2025-02-15] VITALS (11 sets, daily range): BP systolic 107–179; BP diastolic 42–97; PULSE 55–68; RESP 14–18; TEMP 36.2–36.7; O2SAT 92–99; BMI 38.0
--- NOTE | 2025-02-15 07:02 | P.PNANES_ITS ---
[facility] Disclaimer: The information contained in this section may have been updated after the patient was seen, as this information can be updated by other users. Medical History Mandible pain Sinus mucosal thickening Sinus congestion Tooth pain GERD (gastroesophageal reflux disease) Sleep apnea Surgical History History of tonsillectomy and adenoidectomy History of tooth extraction History of bilateral knee replacement History of inguinal hernia repair H/O shoulder surgery right History of colonoscopy Family History Other Brain cancer Family history of myocardial infarction Social History (Updated 02/15/25 @ 06:33 by Edith Boyce RN) Smoking Status: Former smoker tobacco type: cigarettes how long ago did patient quit smokin alcohol intake: never substance use type: denies use current occupational status: employed Travel in the last 8 weeks?: Inside the [place] household members: spouse and family housing: house marital status: education level: college service: No caffeine: Yes special robbin needs: No agree to transfusion: No do you feel safe at home: Yes victim of physical abuse: No victim of emotional abuse: No victim of sexual abuse: No would you like helpful sources: No Have you lived/traveled outside [place] in past 30 days?: No Contact w/someone who lives/traveled outside US past 30 days?: No Exposure to someone with infectious disease in past 14 days?: No Do you have a fever (greater than 100.4 F or 38 C)?: No Have you tested positive for COVID-19?: No Exposed to someone with COVID-19 in past 14 days?: No Do you have a sore throat?: No Do you have a cough?: No Do you have any weakness?: No Are you experiencing any nausea/vomitting?: No Do you have any diarrhea?: No Are you experiencing any unusual bleeding?: No Do you have any muscle aches/pain?: No Do you have any abdominal pain?: No Are you experiencing loss of taste or smell?: No [facility] Anesthesia Checklist Patient Identification Patient Identification: Arm Band Structural Data Admitted From: Home Planned Operative Procedure/s: Image Guided Nasal Septoplasty, FESS Consent for Planned Operative Procedure(s) Verified: Yes Verified Documents: Surgical Consent and History and Physical NPO Status Verified Time NPO: 00:00 Additional verifications Anesthesia Reactions: No Hx Blood Transfusions: No Blood Transfusion Reaction: No Airway Assessment Mallampati Score:: Class II C-Spine Mobility Assessed: Yes TMJ Mobility Assessed: Yes Dentition: Good Dentition Neurological Assessment Level of Consciousness: Awake, Alert and Appropriate Anesthesia Plan Anesthesia Risk discussed: Yes Anesthesia Plan: Verified ASA Class: II Anesthesia Type: General
[2025-02-15] MEDS: 0.9 % SODIUM CHLORIDE 100 ML IV (08:45)
[2025-02-15] MEDS: OXYMETAZOLINE NASAL SPRAY 0.05% 15ML 15 ML NS ×2 (08:45→09:21)
[2025-02-15] MEDS: 0.9 % SODIUM CHLORIDE 1,000 ML 100 ML IV (08:51)
[2025-02-15] MEDS: 0.9 % SODIUM CHLORIDE 500 ML IV (09:31)
--- NOTE | 2025-02-15 10:55 | EXP.OP.NOTE ---
Date of procedure: 02/15/25 Pre-op Diagnosis:: chronic medrano sinusitis inferior turbinate hypertrophy Post-op Diagnosis:: same Procedure performed:: bilateral maxillary antrostomy bilateral total ethmoidectomy bilateral sphenoid sinusotomy bilateral frontal sinusotomy extracranial stereotactic image guidance bilateral submucosal inferior turbinate resection Surgeon:: Jose Bond MD Anesthesia: GETA Estimated blood loss (mL): 100 Operative findings:: bilateral middle meatus polyps significant inflammed mucosa throughout all sinuses Operative note:: The patient was brought to the OR in supine position. General anesthesia was induced. Patient was prepped and draped in usual fashion. Nares were decongested with afrin soaked pledgets. The patient had a mild right septal deviation but I felt I would be able to perform the FESS without having to do a septoplaty, as such per my pre-operative discussion with the patient no septoplasty was performed. The extracrianial image guidance system was set up and confirmed to be working appropriately. The patient's middle turbinates were medialized and the inferior turbinates lateralized. First starting on the left, a ball-tip probe was used to identify the maxillary sinus os. The uncinate was reflected forward and taken down. The backbiter and debrider were then used to further open up the maxillary antrostomy. I then worked my way through the anterior ethmoid air cells back to through the basal lamella. The patient had nasal polyps coming down to the level of the inferior turbinate in the middle meatus/ethmoids which were removed and sent for pathology. I identified the superior turbinate and the natural sphenoid sinus os medial to it. The sphenoid sinus os was opened with a J curette and then gently with the microdebrider and kerrison. I then worked my way in a kafffydky-au-lqtnezbn fashion along the patient's skull base and identified the frontal sinus recess using the frontal instruments and the 30-degree scope. The frontal sinus recess was then further opened up with the frontal instruments. I then turned my attention towards the right side. Again, the maxillary sinus os was identified with a ball-tip probe. The uncinate was reflected forward. The uncinate was taken down with a backbiter and microdebrider. I then worked my way through the anterior ethmoid air cells and through the basal lamella. Once again nasal polyps were removed from the middle meatus which were coming down to the level of the inferior turbinate. I identified the superior turbinate and the sphenoid sinus os medial to it. The sphenoid sinus was opened with a J curette, kerrison, and microdebrider. I then worked in a yktxdtoky-qk-aebgndjw fashion coming along the skull base and identified the frontoethmoidal recess. This was then opened up further with the frontal sinus instruments and 30-degree scope. In addition to the poylps removed, the patient had severely inflammed sinonasal mucosa throughout all of his sinuses. I then turned my attention towards the inferior turbinates. Stab incision was made at the head of each inferior turbinate. The mucosa was dissected off the underlying bone. The turbinate shaver was then used to perform a submucosal resection. Turbinates were then outfractured. Afrin soaked dissolvable packing was then placed in the middle meatuses bilaterally. The nose and mouth were suctioned out. They were then turned back over to anesthesia to be awoken and extubated. Condition: stable Disposition: PACU Complications:: none
--- NOTE | 2025-02-15 10:57 | EXP.ANES.I ---
[facility] Anesthesia Record Part I Anesthesia Record I Intake, IV Amount: 2,400 Hydration: Adequate Estimated blood loss (mL): 50 Urine output (mL): 0 Blood Pressure: 115/74 SaO2: 93 Pulse Rate: 64 Airway Patency: Patent Respiratory Rate: 14 Temperature: 98 F Patient is:: Awake and Stable Stable to PACU at:: 10:55
[2025-02-15] MEDS: HYDROMORPHONE 2MG/ML SYRINGE 0.5 MG IV (11:19)
--- NOTE | 2025-02-16 07:16 | P.PNANES_ITS ---
[facility] Anesthesia Record Part II Anesthesia Record Part II Discharge Time: 11:45 Destination: Surgical Day Care (OP Surgery) PACU nurse assessment reviewed?: Yes Patient Condition:: Good Anesthesia Complications:: None Swallowing reflex intact?: Yes Airway Patency: Patent Cyanosis?: No Blood Pressure: 140/56 SaO2: 95 Respiratory Rate: 16 Pulse Rate: 68 Temperature: 97.3 F Mental Status: Alert & Oriented Pain level:: 4 Nausea and/or vomitting:: None Intake, IV Amount: 0 Hydration: Adequate
[2025-02-16 07:17] VITALS: BP 140/56; PULSE 68; RESP 16; TEMP 36.3; O2SAT 95
== END 2025-02-15 13:28 | disposition home or self-care (01) ==
PROVIDERS: PCP Family Medicine; Visit Provider Student in an Organized Health Care Education/Training Program
PROC: (CPT 30520; principal; 2025-02-15 07:30)
DX: J32.4 Chronic pansinusitis (principal); J34.3 Hypertrophy of nasal turbinates; D14.0 Benign neoplasm of middle ear, nasal cavity and accessory sinuses; Z79.899 Other long term (current) drug therapy; K21.9 Gastro-esophageal reflux disease without esophagitis; G47.30 Sleep apnea, unspecified; Z87.891 Personal history of nicotine dependence; K08.89 Other specified disorders of teeth and supporting structures; G89.29 Other chronic pain
CPT/HCPCS: 30140; 31256; 31257; 31276; 61782; 96374; J0690; J1100; J1171; J2003; J2004; J2250; J2405; J2704; J3010; J7040; J7120

== ENCOUNTER 2025-04-13 15:11 | Outpatient (CLI) | payer BC, SELFPAY ==
--- OUTSIDE RECORDS SUMMARY | 2024-12-03 06:15 | XMS_ITS ---
[facility] Organization [facility] Address [address] [place] [id number] Care Team Providers Care Reproduction Specialist Name Role Phone SimranAlfaAllen Primary Care Provider Allergies No Known Allergies Results Component Value Reference Range Notes Glucose (In-House) Reviewed date:12/05/2024 01:06:13 PM Interpretation:119 Performing Lab: Notes/Report: 119 blood glucose 119 74 - 106 mg/dL Glycohemoglobin A1c (in hous e) Reviewed date:12/05/2024 01:06:13 PM Interpretation:Normal Performing Lab: Notes/Report: Normal glycohemoglobin 5.7% 5 - 6.5 % P-Comprehensive Metabolic Pa benedict (CMP) Reviewed date:12/05/2024 01:06:13 PM Interpretation:cl 110, co2- 20, gluc 110 Performing Lab: Notes/Report: Test performed by [facility]ly [facility] , [address], [place] [address] Tomi Benites MD, Grubber CLIA: [id number] Sodium 145 135-145 mmol/L Potassium 4.4 3.5-5.3 mmol/L Chloride 110 97-108 mmol/L CO2 20 22-32 mmol/L Glucose 110 65-99 mg/dL BUN 18 8-23 mg/dL Creatinine 1.22 0.70-1.30 mg/dL Calcium 9.4 8.6-10.4 mg/dL eGFR by Creatinine 68 >59 mL/min/1.73m2 Protein 6.8 6.0-8.3 g/dL Albumin 4.1 3.5-5.3 g/dL Alkaline Phosphatase 112 40-129 IU/L ALT (SGPT) 19 <5-55 IU/L AST (SGOT) 16 <5-46 IU/L Bilirubin, Total 0.3 <0.2-1.2 mg/dL A/G Ratio 1.5 1.1-2.5 P-Lipid Panel Reviewed date:12/05/2024 01:06:13 PM Interpretation:Normal Performing Lab: Notes/Report: Test performed by [facility], [address] , [place] [address] Tomi Benites MD, Grubber CLIA: [id number] Cholesterol 171 <200 mg/dL Triglycerides 134 <150 mg/dL HDL Cholesterol 48 >39 mg/dL Cholesterol / HDL Ratio 3.56 0.00-4.99 Ratio Non-HDL Cholesterol 123 <130 mg/dL LDL Cholesterol (Calculation) 96 <130 mg/dL LDL Cholesterol Levels* Less than 100 mg/dL Optimal 100 to 129 mg/dL Near Optimal/ Above Optimal 130 to 159 mg/dL Borderline High 160 to 189 mg/dL High 190 mg/dL and above Very High * Categories as recommended by the 2004 ATPIII guidelines LDL/HDL Ratio 2.0 <3.3 Ratio LDL Cholesterol Patient History Test Date: 07/09/2023 LDL Results: 108 Units: mg/dL % Change: - Test Date: 12/03/2024 LDL Results: 96 Units: mg/dL % Change: -11% P-PSA Reviewed date:12/05/2024 01:06:13 PM Interpretation:Normal Performing Lab: Notes/Report: Test performed by [facility] [address] [place] [address] [place] [address] Tomi Benites MD, Grubber CLIA: [id number] PSA 0.40 <4.00 ng/mL Please note this is an ultrasensitive PSA assay with a lower limit of detection of 0.014 ng/mL. This test is performed by the Philip ECLIA methodology. Values obtained with different assay methods or kits cannot be directly compared. P-TSH reflex to FT4 Reviewed date:12/05/2024 01:06:13 PM Interpretation:Normal Performing Lab: Notes/Report: Test performed by [facility] [address] [place] [address] [place] [address] Tomi Benites MD, Grubber CLIA: [id number] TSH reflex to FT4 2.61 0.43-5.25 mU/L REASON FOR VISIT Check Up w/ Refills Medications Medication SIG (Take, Route, Frequency, Duration) Notes Start Date End Date Status Cetirizine HCl 10 MG 1 tab(s) orally onc e a day Not-Taking Montelukast Sodium 10 MG 1 tab(s) orally once a day; Duration: 30 day(s) Not-Taking Fluticasone Propionate 50 MCG/ACT 1 spray(s) in each nostril once a day; Duration: 30 day(s) Not-Taking CPAP Supplies - as directed as directed 05/05/2024 Active PriLOSEC OTC 20 MG 1 tab(s) orally once a day Active Wixela Inhub 250-50 MCG/ACT 1 INH inhaled 2 times a day Active Tadalafil 20 MG 1 tablet as needed Orally Once a day as needed 07/09/2023 Active Social History Tobacco Use: Social History Observation Description Date Details (start date - stop date) Former Smoker NA - NA CURRENT TOBACCO USE: Question Answer Notes Are you a: former smoker Age [age]; 1/2-1 ppd Vital Signs Weight 288.2 lbs 12/03/2024 Blood pressure systolic 120 mm Hg 12/04/19 25 Blood pressure diastolic 72 mm Hg 025 Heart Rate 62 /min 12/03/2024 Height 72.75 in 12/03/2024 BMI 38.28 kg/m2 12/03/2024 Encounters Encounter Location Date Provider Diagnosis [facility] [address] [place] [id number] 12/03/2024 Allen Khalil IFG (impaired fastin g glucose) R73.01 ; Hypertriglyceridemia E78.1 ; Erectile dysfunction, unspecified erectile dysfunction type N52.9 ; Prostate cancer screening Z12.5 and Skin tags, multiple acquired L91.8 Assessments Encounter Date Diagnosis (ICD Code) Assessment Notes Treatment Notes Treatment Clinical Notes Section Notes 12/03/2024 IFG (impaired fastin g glucose) (ICD-10 - R73.01) 12/03/2024 Hypertriglyceridemia (ICD-10 - E78.1) 12/03/2024 Erectile dysfunction , unspecified erectile dysfunction type (ICD-10 - N52.9) 12/03/2024 Prostate cancer screening (ICD-10 - Z12.5) 12/03/2024 Skin tags, multiple acquired (ICD-10 - L91.8) Plan Of Treatment Medication Medication Name Sig Start Date Stop Date Notes Tadalafil 20 MG 1 tablet as needed O rally Once a day as needed 07/09/2023 Next Appt Details Follow Up: 30 min. procedure , Reason: Provider Name:Varinder Luu, 04/13/2025 02:30:00 PM, [address], [address], [place], [id number], Provider Name:Allen subramanian, 04/13/2025 03:06:00 PM, [address], [address], [place], [id number], Progress Notes * SUKUMAR ERAZODOB:1965 (60 yo M)Acc No.[id number]:12/03/2024 Progress Notes Patient: SUKUMAR MERCADO Provider: Andrew Khalil M.D. :1965 A ge:59 Y S ex:Male Date:12/03/2024 Address:[address] [place] [address], [facility] Subjective: * Chief Complaints: * 1 . Check Up w/ Refills. * HPI: M marily Reproductive: 59 year old male presents with c/o erectile dysfunction T he pt is here for a check-up and is needing a refill for Tadalafil sent to [facility]. * ROS: D ERMATOLOGY: no R pete. n o H hailee. G ASTROENTEROLOGY: no N ausea. n o V omiting. n o D iarrhea.? U ROLOGY: no D ifficulty urinating. n o B lood in urine. * Medical History: A nxiety disorder, Erectile dysfunction, Impaired fasting glucose, 10 pack year smoking history, quit in 2001, Allergic rhinitis, Chronic cough, s/p evaluation at pulmonology and Cardiology in 2019, Arthritis, knees, Hypertriglyceridemia. * Surgical History: R T Shoulder Reconstruction 03/2016, Colonoscopy 2014, 2024 , Total left knee arthroplasty at 05/27/23, Total Right Knee arthoplasty at November 2023. * Family History: F ather: alive 91 yrs, diagnosed with Cancer, Heart Disease in 66 at the age of - 1867. M other: alive 90 yrs. S iblings: alive. C jeannieen: alive. Father- Prostate Cancer. * Social History: C URRENT TOBACCO USE A re you a: f ormer smoker Age [age]; 1/2-1 ppd. P ast smoking status: previous history. * Medications: T aking Wixela Inhub 250-50 MCG/ACT Aerosol Powder Breath Activated 1 INH inhaled 2 times a day , Taking Tadalafil 20 MG Tablet 1 tablet as needed Orally Once a day as needed , Taking PriLOSEC OTC 20 MG Tablet Delayed Release 1 tab(s) orally once a day , Taking CPAP Supplies - - as directed as directed , Not-Taking Fluticasone Propionate 50 MCG/ACT Suspension 1 spray(s) in each nostril once a day , Not- Taking Montelukast Sodium 10 MG Tablet 1 tab(s) orally once a day , Not-Taking Cetirizine HCl 10 MG Tablet 1 tab(s) orally once a day * Allergies: N .K.D.A. Objective: * Vitals: W t: 288.2, Temp: 98.5, BP: 120/72, HR: 62, Nurse: DEJAN, Ht: 72.75, BMI:38.28. * Examination: G eneral Examination: General Appearance: N AD. H eart: R SR. L ungs:?clear to auscultation. S kin: m ultiple small flesh colored papules in each axilla.?Peripheral pulses: n ormal (2+) bilaterally. E xtremities: n o leg edema. ? Assessment: * Assessment: 1. I FG (impaired fasting glucose) - R73.01 (Primary) 2 . H ypertriglyceridemia - E78.1 3 . E rectile dysfunction, unspecified erectile dysfunction type - N52.9 4 . P rostate cancer screening - Z12.5 5 . S kin tags, multiple acquired - L91.8 Plan: * Treatment: Value Reference Range A /G Ratio 1.5 1.1-2.5 - * A lbumin 4.1 3.5-5.3 - g/dL * A lkaline Phosphatase 112 40-129 - IU/L * A LT (SGPT) 19 <5-55 - IU/L * A ST (SGOT) 16 <5-46 - IU/L * B ilirubin, Total 0.3 <0.2-1.2 - mg/dL * B UN 18 8-23 - mg/dL * C alcium 9.4 8.6-10.4 - mg/dL * C hloride 110 H 97-108 - mmol/L * C O2 20 L 22-32 - mmol/L * C reatinine 1.22 0.70-1.30 - mg/dL * G lucose 110 H 65-99 - mg/dL * P otassium 4.4 3.5-5.3 - mmol/L * S odium 145 135-145 - mmol/L * P rotein 6.8 6.0-8.3 - g/dL * e GFR by Creatinine 68 >59 - mL/min/1.73m2 * Kristel Gerber 12/05/2024 01 :06:03 PM EDT > See phone encounter ?LAB: P-TSH reflex to FT4 (Collection Date & Time - 12/03/2024 12:00 PM)? Normal* Value Reference Range T SH reflex to FT4 2.61 0.43-5.25 - mU/L * Kristel Gerber 12/05/2024 01 :06:03 PM EDT > See phone encounter ?LAB: Glucose (In-House) (Collection Date & Time - 12/03/2024)?119* Value Reference Range b lood glucose 119 74 - 106 mg/dL * Akilah Chamorro 12/03/2024 10: 39:51 AM EDT > Noris Gerberney 12/05/2024 01:06:03 PM EDT > See phone encounter ?LAB: Glycohemoglobin A1c (in house) (Collection Date & Time - 12/03/2024)? Normal* Value Reference Range g lycohemoglobin 5.7% 5 - 6.5 % * Akilah Chamorro 12/03/2024 10: 40:11 AM EDT > Kristel Gerber 12/05/2024 01:06:03 PM EDT > See phone encounter 2.?Hypertriglyceridemia?LAB: P-Comprehensive Metabolic Panel (CMP) (Collection Date & Time - 12/03/2024 12:00 PM)?cl 110, co2- 20, gluc 110* Value Reference Range A /G Ratio 1.5 1.1-2.5 - * A lbumin 4.1 3.5-5.3 - g/dL * A lkaline Phosphatase 112 40-129 - IU/L * A LT (SGPT) 19 <5-55 - IU/L * A ST (SGOT) 16 <5-46 - IU/L * B ilirubin, Total 0.3 <0.2-1.2 - mg/dL * B UN 18 8-23 - mg/dL * C alcium 9.4 8.6-10.4 - mg/dL * C hloride 110 H 97-108 - mmol/L * C O2 20 L 22-32 - mmol/L * C reatinine 1.22 0.70-1.30 - mg/dL * G lucose 110 H 65-99 - mg/dL * P otassium 4.4 3.5-5.3 - mmol/L * S odium 145 135-145 - mmol/L * P rotein 6.8 6.0-8.3 - g/dL * e GFR by Creatinine 68 >59 - mL/min/1.73m2 * Kristel Gerber 12/05/2024 01 :06:03 PM EDT > See phone encounter ?LAB: P-Lipid Panel (Collection Date & Time - 12/03/2024 12:00 PM)?Normal* Value Reference Range C holesterol / HDL Ratio 3.56 0.00-4.99 - Ratio * C holesterol 171 <200 - mg/dL * H DL Cholesterol 48 >39 - mg/dL * L DL Cholesterol (Calculation) 96 <130 - mg/d L * L DL/HDL Ratio 2.0 <3.3 - Ratio * N on-HDL Cholesterol 123 <130 - mg/dL * T riglycerides 134 <150 - mg/dL * Kristel Gerber 12/05/2024 01 :06:03 PM EDT > See phone encounter ?LAB: P-TSH reflex to FT4 (Collection Date & Time - 12/03/2024 12:00 PM)? Normal* Value Reference Range T SH reflex to FT4 2.61 0.43-5.25 - mU/L * Kristel Gerber 12/05/2024 01 :06:03 PM EDT > See phone encounter 3.?Erectile dysfunction, unspecified erectile dysfunction type? Refill Tadalafil Tablet, 20 MG, 1 tablet as needed, Orally, Once a day as needed, 10, Refills 11. ?4.?Prostate cancer screening?LAB: P-PSA (Collection Date & Time - 12/03/2024 12:00 PM)?Normal* Value Reference Range P SA 0.40 <4.00 - ng/mL * Kristel Gerber 12/05/2024 01 :06:03 PM EDT > See phone encounter * Procedure Codes: 8 2950 GLUCOSE TEST, [address]8039 GLYCATED HEMOGLOBIN TEST, Modifiers: QW , 3044F HG A1C LEVEL LT 7.0%, G8783 BP SCR PRFRM RCMDD DEFIND SCR INTVL, G8752 MOST RECENT SYSTOLIC BP < 140MM HG, G8754 MOST RECENT DIASTOLIC BP < 90MM HG * Follow Up: 3 0 min. procedure * Images: Billing Information: * Visit Code: 43923 Office Visit, Est Pt., Level 4. * Procedure Codes: 04181 GLUCOSE TEST. [address]9813 GLYCATED HEMOGLOBIN TEST. Modifiers: QW 3044F HG A1C LEVEL LT 7.0%. G8783 BP SCR PRFRM RCMDD DEFIND SCR INTVL. G8752 MOST RECENT SYSTOLIC BP < 140MM HG. G8754 MOST RECENT DIASTOLIC BP < 90MM HG. * Electronic signature of Terra Khalil MD on 04/13/2025 at 03:13 PM EDT Sign off status: Pending * Provider: Andrew Khalil M.D. Date: 0 12/03/2024 Generated for Rosalind ward/Guevara/Franklynitting on: 1 03:13 PM EDT History and Physical Notes * HPI (History of Present Illness) Category Sub-Category Detail Notes Category Not es Male Reproductive erectile dysfunction The pt is here for a check-up and is needing a refill for Tadalafil sent to [facility] Examination Category Sub-Category Detail Notes Category Not es General Examination Heart: RSR Lungs: clear to auscultatio n Extremities: no leg edema General Appearance: NAD Skin: multiple small flesh colored papules in each axilla Peripheral pulses: normal (2+) bilatera lly
--- OUTSIDE RECORDS SUMMARY | 2024-12-22 07:30 | XMS_ITS ---
Author Organization [facility] Address [address] [facility] [address] [place] [id number] Care Team Providers Care Executive Asst Name Role Phone Allen Khalil Primary Care Provider Allergies No Known Allergies REASON FOR VISIT skin tag removes Medications Medication SIG (Take, Route, Frequency, Duration) Notes Start Date End Date Status CPAP Supplies - as directed as directed 05/05/2024 Active Tadalafil 20 MG 1 tablet as needed O rally Once a day as needed 07/09/2023 Active Wixela Inhub 250-50 MCG/ACT 1 INH inhaled 2 times a day Active PriLOSEC OTC 20 MG 1 tab(s) orally once a day Active Social History Tobacco Use: Social History Observation Description Date Details (start date - stop date) Former Smoker NA - NA CURRENT TOBACCO USE: Question Answer Notes Are you a: former smoker Age [age]; 1/2-1 ppd Vital Signs Weight 285 lbs 12/22/2024 Blood pressure systolic 130 mm Hg 12/23/19 25 Blood pressure diastolic 72 mm Hg 025 Heart Rate 70 /min 12/22/2024 Height 72.75 in 12/22/2024 BMI 37.86 kg/m2 12/22/2024 Encounters Encounter Location Date Provider Diagnosis [facility] [address] [place] [id number] 12/22/2024 Allen Khalil Skin tags, multiple acquired L91.8 Assessments Encounter Date Diagnosis (ICD Code) Assessment Notes Treatment Notes Treatment Clinical Notes Section Notes 12/22/2024 Skin tags, multiple acquired (ICD-10 - L91.8) Plan Of Treatment Next Appt Details Follow Up: prn, Reason: Provider Name:Varinder Kilgore et, 04/13/2025 02:30:00 PM, [address], [address], [place], [place], [id number], Provider Name:Allenvaleria Puckett marilynn, 04/13/2025 03:06:00 PM, [address], [address], [place], [id number], Procedure Notes * Category Sub-Category Detail Notes Scissor Snip Indication(s): Acrochordon (ski n tag) - 11 in total Consent: It was explained francis t these lesions are benign and no further treatment is needed. It was also explained that the insurance company considers these lesions cosmetic and will not pay for their removal. None the less, the patient wishes to procede with their removal. All risks, benefits, and potential complications were discussed including bleeding, infection, scarring, and the need for future therapy Locations: left axilla, right a xilla, right groin Method: The areas were prepp ed with alcohol. Utilizing an Adson's forceps and curved scissor, the lesions were snipped at their bases. Electrocautery applied to the base of each lesion Progress Notes * CASTRO SUKUMARDOB:1965 (60 yo M)Acc No.[id number]:12/22/2024 Progress Notes Patient: SUKUMAR MERCADO Provider: Andrew Khalil M.D. :1965 A ge:59 Y S ex:Male Date:12/22/2024 Address:[address] [place] [address], [facility] Subjective: * Chief Complaints: * 1 . Skin tag removes. * HPI: D ermatology: 59 year old male presents with c/o skin tags P t here to today for skin tag removal. Pt states he has skin tags in both armpits a nd rt hip area. * ROS: C ARDIOLOGY: no D izziness. n o C hest pain. G ASTROENTEROLOGY: no N ausea. n o V omiting. U ROLOGY: no D ifficulty urinating. n o B lood in urine. * Medical History: A nxiety disorder, Erectile dysfunction, Impaired fasting glucose, 10 pack year smoking history, quit in 2001, Allergic rhinitis, Chronic cough, s/p evaluation at pulmonology and Cardiology in 2019, Arthritis, knees, Hypertriglyceridemia. * Surgical History: R T Shoulder Reconstruction 03/2016, Colonoscopy 2014, 2024 , Total left knee arthroplasty at 05/27/2023, Total Right Knee arthoplasty at 11/2023. * Hospitalization/Major Diagno stic Procedure: D enies Past Hospitalization. * Family History: F ather: alive 91 yrs, diagnosed with Cancer, Heart Disease in 66 at the age of - 1867. M other: alive 90 yrs. S iblings: alive. C lizzette: alive. Father- Prostate Cancer. * Social History: C URRENT TOBACCO USE A re you a: f ormer smoker Age [age]; 1/2-1 ppd. P ast smoking status: previous history. * Medications: T aking Wixela Inhub 250-50 MCG/ACT Aerosol Powder Breath Activated 1 INH inhaled 2 times a day , Taking PriLOSEC OTC 20 MG Tablet Delayed Release 1 tab(s) orally once a day , Taking CPAP Supplies - - as directed as directed , Taking Tadalafil 20 MG Tablet 1 tablet as needed Orally Once a day as needed , Discontinued Fluticasone Propionate 50 MCG/ACT Suspension 1 spray(s) in each nostril once a day , Discontinued Montelukast Sodium 10 MG Tablet 1 tab(s) orally once a day , Discontinued Cetirizine HCl 10 MG Tablet 1 tab(s) orally once a day , Medication List reviewed and reconciled with the patient * Allergies: N .K.D.A. Objective: * Vitals: W t: 285, Temp: 98.0, BP: 130/72, HR: 70, Nurse: kk, Ht: 72.75, BMI:37.86. * Examination: G eneral Examination: General Appearance: N AD. S kin: m ultiple skin tags, 5 in each axilla, one in right groin. Assessment: * Assessment: 1. S kin tags, multiple acquired - L91.8 (Primary) Plan: * Treatment: * Procedures: S cissor Snip: Indication(s): A crochordon (skin tag) - 11 in total. C onsent: I t was explained that these lesions are benign and no further treatment is needed. It was also explained that the insurance company considers these lesions cosmetic and will not pay for their removal. None the less, the patient wishes to procede with their removal. All risks, benefits, and potential complications were discussed including bleeding, infection, scarring, and the need for future therapy. L ocations: l eft axilla, right axilla, right groin. M ethod: T he areas were prepped with alcohol. Utilizing an Adson's forceps and curved scissor, the lesions were snipped at their bases. Electrocautery applied to the base of each lesion. * Procedure Codes: 1 1200 REMOVAL OF SKIN TAGS UP TO AND INCLUDING 15 LESIONS * Follow Up: p jesus * Images: Billing Information: * Visit Code: * Procedure Codes: 81268 REMOVAL OF SKIN TAGS UP TO AND INCLUDING 15 LESIONS. * Electronic signature of Terra Khalil MD on 04/13/2025 at 03:13 PM EDT Sign off status: Pending * Provider: Andrew Khalil M.D. Date: 0 12/22/2024 Generated for Rosalind ward/Guevara/Franklynitting on: 1 03:13 PM EDT History and Physical Notes * HPI (History of Present Illness) Category Sub-Category Detail Notes Category Not es Dermatology skin tags Pt here to today for skin tag removal. Pt states he has skin tags in both armpits and rt hip area Examination Category Sub-Category Detail Notes Category Not es General Examination General Appearance: NAD Skin: multiple skin tags, 5 in each axilla, one in right groin
--- OUTSIDE RECORDS SUMMARY | 2025-04-13 15:13 | XMS_ITS | Patient Health Record ---
[facility] [address] [facility] [address] [place] [id number] Care Team Providers Care Measurement Technician Name Role Phone SimranAlfaAllen Primary Care Provider Varinder Bal Americo Unavailable [phone] Allergies No Known Allergies Results Component Value [...] 110 Performing Lab: Notes/Report: Test performed by [facility] [address] [place] [address] , [address], [place] [address] Tomi Benites MD, Corporate General Manager CLIA: [id number] Sodium 145 135-145 mmol/L Potassium 4.4 3.5-5.3 [...] Interpretation:Normal Performing Lab: Notes/Report: Test performed by [facility] [address] , [place] [address] Tomi Benites MD, Corporate General Manager CLIA: [id number] Cholesterol 171 <200 mg/dL Triglycerides 134 <150 [...] Interpretation:Normal Performing Lab: Notes/Report: Test performed by [facility] [address] [place] [address] [place] [address] Tomi Benites MD, Corporate General Manager CLIA: [id number] PSA 0.40 <4.00 ng/mL Please note this is an ultrasensitive PSA assay with a lower limit of detection of 0.014 ng/mL. This test is performed by the Philip ECLIA methodology. Values obtained with different assay methods or kits cannot be directly compared. P-TSH reflex to FT4 Reviewed date:12/05/2024 01:06:13 PM Interpretation:Normal Performing Lab: Notes/Report: Test performed by [facility] [address] [place] [address] [address] Maurer , [place] [address] Tomi Benites MD, Corporate General Manager CLIA: [id number] TSH reflex to FT4 2.61 0.43-5.25 mU/L Reason For Referral No Information Medications Medication SIG (Take, Route, Frequency, Duration) Notes Start Date End Date Status Tadalafil 20 MG 1 tablet as needed O rally Once a day as needed 07/09/2023 Active CPAP Supplies - as directed as directed 05/05/2024 Active Dupixent 300 MG/2ML 2 mL Subcutaneous Active PriLOSEC OTC 20 MG 1 tab(s) orally once a day Active Wixela Inhub 250-50 MCG/ACT 1 INH inhaled 2 times a day Active Immunizations Vaccine Route Administration Date Status Comme nts COVID 19 Pfizer Unknown 02/08/2021 Administered COVID 19 Pfizer Unknown 03/06/2021 Administered Tetanus Tdap-Adacel (over 7yrs) Unknown 10/05/2014 Admi nistered Social History Tobacco Use: Social History Observation Description Date Details (start date - stop date) Former Smoker NA - NA CURRENT TOBACCO USE: Question Answer Notes Are you a: former smoker Age 21-36; 1/2-1 ppd Problems Problem Type SNOMED Code ICD Code Onset Dates Problem Status W/U Status Risk Notes Problem Hypertriglyceridemia (952198023) Hypertriglyceridemia (E78.1) Active confirmed Problem Chronic pain (15873436) Other chronic pain (G89.29) Active confirmed Problem COPD - Chronic obstructive pulmonary disease (38283805) Chronic obstructive pulmonary disease, unspecified COPD type (J44.9) Active confirmed Problem Erectile dysfunction (disorder) (813562927) Erectile dysfunction, unspecified erectile dysfunction type (N52.9) Active confirmed Problem Adjustment disorder (55495873) Adjustment disorder, unspecified type (F43.20) Active confirmed Problem Obesity (259553444) Non morbid o besity (E66.9) Active confirmed Problem Allergic rhinitis (01252075) Allergic rhinitis, unspecified seasonality, unspecified trigger (J30.9) Active confirmed Problem Gastroesophageal reflux disease (628501190) Gastroesophageal reflux disease, unspecified whether esophagitis present (K21.9) Active confirmed Vital Signs Heart Rate 63 /min 04/13/2025 Blood pressure diastolic 74 mm Hg 04/13/2025 Height 72.75 in 04/13/2025 Blood pressure systolic 120 mm Hg 04/13/2025 Weight 290.4 lbs 04/13/2025 BMI 38.57 kg/m2 04/13/2025 Encounters Encounter Location Date Provider Diagnosis [facility] [facility] [address] [place] [id number] 12/03/2024 [place] IFG (impaired fastin g glucose) R73.01 ; Hypertriglyceridemia E78.1 ; Erectile dysfunction, unspecified erectile dysfunction type N52.9 ; Prostate cancer screening Z12.5 and Skin tags, multiple acquired L91.8 [facility] [facility] [address] [place], [place] [id number] 12/22/2024 [place] Skin tags, multiple acquired L91.8 [facility] [facility] [address] [place] [id number] 04/13/2025 Varinder [place] Left foot pain M79.6 72 [facility] [address] [place], [place] [id number] 04/13/2025 [place] [facility] [address] [place], [place] [id number] 05/05/2024 [place] [facility] [address] [place], [place] [id number] 05/05/2024 [place] [facility] [address] [place], [place] [id number] 12/01/2024 [place] [facility] [address] [place], [place] [id number] 12/05/2024 [place] [facility] [address] [place], [place] [id number] 12/13/2024 [place] Assessments Encounter Date Diagnosis (ICD Code) Assessment Notes Treatment Notes Treatment Clinical Notes Section Notes 12/03/2024 Hypertriglyceridemia (ICD-10 - E78.1) 12/03/2024 IFG (impaired fastin g glucose) (ICD-10 - R73.01) 12/22/2024 Skin tags, multiple acquired (ICD-10 - L91.8) 04/13/2025 Left foot pain (ICD- 10 - M79.672) 12/03/2024 Erectile dysfunction , unspecified erectile dysfunction type (ICD-10 - N52.9) 12/03/2024 Prostate cancer screening (ICD-10 - Z12.5) 12/03/2024 Skin tags, multiple acquired (ICD-10 - L91.8) Plan Of Treatment Next Appt Details Provider Name:Varinder Kilgore juan j, 04/13/2025 02:30:00 PM, [address], [address], [place], [place], [phone], Provider Name:Allen Puckett ry, 04/13/2025 03:06:00 PM, [address], [address], [place], [place], [id number], Insurance Providers Payer Name Payer Address Payer Phone Subscriber Number Group Number Insured Name Patient Relationship to Insured Coverage Start Date Coverage End Date [employer] [address] [place] [address] [id number] SUKUMAR ERAZO Self - patient is the insured Medical (General) History Medical History History ICD Code Anxiety disorder Erectile dysfunction Impaired fasting glucose 10 pack year smoking history, quit in 18 08 allergic rhinitis Chronic cough, s/p evaluation at [facility] onology and Cardiology in 2019 Arthritis, knees hypertriglyceridemia Surgical History Surgery Date(Month/Year) RT Shoulder Reconstruction 03/2016 Colonoscopy 2024 Total left knee arthroplasty at 05/27 Total Right Knee arthoplasty at 12/17 23 Hospitalization History Reason Date(Month/Year)
--- NOTE | 2025-04-13 15:15 | XR_ITS ---
FINAL REPORT CLINICAL HISTORY: ATTN 1ST MP JOINT, PAIN INJURY FINDINGS: AP, oblique and lateral views of the left foot were obtained. There is no acute fracture or dislocation. The joint spaces are preserved. Soft tissues are unremarkable. IMPRESSION: No acute osseous abnormality of the left foot. Reviewed, Interpreted and Dictated by Tabatha Beavers MD Transcribed by Emmie Rodrigez Authenticated and [facility]
== END 2025-04-13 23:59 | disposition home or self-care (01) ==
LOC: RAD 15:12
PROVIDERS: PCP Family Medicine; Visit Provider Family Medicine
DX: M79.672 Pain in left foot (principal)
CPT/HCPCS: 73630